=== PATIENT | female | born 1990 | race Caucasian/White ===

== ENCOUNTER 2017-09-20 16:57 | Emergency (ER) | payer SELFPAY ==
[2017-09-20 17:43] VITALS: BP 115/68
--- NOTE | 2017-09-20 18:05 | UC ---
Complaint Female HPI - HPI Summary HPI Summary: Patient presents reporting to be tested for sexually transmitted diseases. Patient states has a new partner as of 3 weeks ago. Patient states approximately 2 weeks ago she noticed some white discharge and dysuria. The symptoms have abated. Patient's partner was recently diagnosed with chlamydia and recommended she come get checked. Patient is not using any barrier protection. Patient without a history of STDs. Patient denies any fevers or chills. No abdominal pain. Back pain. No nausea vomiting. No external lesions. G0 lmp 10 days Patient's medications reviewed this is visit. - History Of Current Complaint Chief Complaint: UCGU Stated Complaint: POSS UTI Time Seen by Provider: 09/20/17 17:49 Hx Obtained From: Patient Hx Last Menstrual Period: 08/07/17 ?: No Onset/Duration: Gradual Onset Pain Intensity: 0 - Allergies/Home Medications Allergies/Adverse Reactions: Allergies Allergy/AdvReac Type Severity Reaction Status Date / Time No Known Allergies Allergy Verified 09/20/17 17:43 PMH/Surg Hx/FS Hx/Imm Hx Previously Healthy: Yes - Surgical History Surgical History: None - Family History Known Family History: Positive: None - Social History Occupation: Employed Full-time Lives: With Family Alcohol Use: Occasionally Substance Use Type: None Smoking Status (MU): Never Smoked Tobacco Review of Systems Constitutional: Negative Genitourinary: Vaginal/Penile Discharge All Other Systems Reviewed And Are Negative: Yes Physical Exam - Summary Physical Exam Summary: Patient Name: AMALIA WELDON Medical Record#: [id number] Ordering Physician: Kath Richards MD Acct.#: [id number] : 01/09/1973 Age: 44 Sex: F Location: [facility] Exam Date: 09/20/171803 ADM Status: REG ER Order Information: HIP RIGHT 2 VIEWS AND PELVIS Accession Number: [id number] CPT: 61302 HISTORY: Right hip lateral pain, bursitis COMPARISONS: None Patient Name: AMALIA WELDON Medical Record#: [id number] Ordering Physician: Kath Richards MD Acct.#: [id number] : 01/09/1973 Age: 44 Sex: F Location: [facility] Exam Date: 09/20/171803 ADM Status: REG ER Order Information: HIP RIGHT 2 VIEWS AND PELVIS Accession Number: [id number] CPT: 02301 HISTORY: Right hip lateral pain, bursitis COMPARISONS: None Vital Signs Reviewed: Yes A+Ox3, no distress Eyes: Conjunctiva Clear, LITTLE. EOM intact and full ENT: Hearing grossly normal TM x 2 clear, mmoist, uvula midline, no exudate, no erythema Neck: Positive: Supple Respiratory: Positive: No respiratory distress, No accessory muscle use + CTA throughout no w/r Cardiovascular: RRR nl s1, s2 no m/r CBT <2 sec abd soft + BS nt/nd no guarding, no distension vaginal: no external lesion, thin scant discharge in vault, no bleeding, no odor no CMT , no masses Musculoskeletal Exam: MOMIN x 4 without difficulty Strength Intact, ROM Intact Neurological: Positive: Alert, + sensation throughout Psychological: Positive: Normal Response To Family Skin: Positive: no rash, no ecchymosis Triage Information Reviewed: Yes Vital Signs: Initial Vital Signs Temp 97.7 F 09/20/17 17:39 Pulse 74 09/20/17 17:39 Resp 16 09/20/17 17:39 BP 115/68 09/20/17 17:39 Pulse Ox 100 09/20/17 17:39 Complaint Female Dx - Course Course Of Treatment: Pt's partner with STD. pt with vaginal discharge and burning x 1 weeks - sx resolved. pt requesting STD check. after discussing with pt will check hep, hiv, rpr, gc/ch. will treat gc/ch. cutures pending - pt aware - Differential Dx/Diagnosis Provider Diagnoses: STD exposure. vaginal discharge Discharge - Sign-Out/Discharge Documenting (check all that apply): Discharge/Admit/Transfer - Discharge Plan Condition: Stable Disposition: HOME Prescriptions: Fluconazole [Diflucan 150 MG (NF)] 150 mg PO ONCE #1 tab Patient Education Materials: Sexually Transmitted Diseases (ED), Safe Sex (ED) Referrals: No Primary Care Phys,NOPCP [Primary Care Provider] - Additional Instructions: you were treated for gonorrhea and chlaymdia today. You have bloodwork and cervical cultures taken - this will test for other sexually transmitted diseases including HIV, hepatitis, trichamonis and syphillis. These results take 3-5 days to come back. A care steaming machine operator will contact you if there are any concerning results. As discussed you should have your HIV rechecked in 6 months [facility], or return with any questions or concerns - Billing Disposition and Condition Condition: STABLE Disposition: HOME
[2017-09-20] MEDS ORDERED: cefTRIAXone VIAL(*) 250 MG VIAL IM ONE (18:28)
[2017-09-20] MEDS ORDERED: Azithromycin TAB* 250 MG PO ONE (18:28)
[2017-09-20] MEDS ORDERED: Lidocaine 1% MPF* 2 ML VIAL ONE (18:36)
[2017-09-20] MEDS ORDERED: Lidocaine 1% MPF* 2 ML VIAL INJ ONE (18:40)
--- NOTE | 2017-09-21 18:47 | ED ---
Progress - Progress Note Progress Note: NURSING TO CALL PATIENT POSITIVE RADHA RX FOR DIFLUCAN SENT TO PHARMACY Discharge - Sign-Out/Discharge Documenting (check all that apply): Discharge/Admit/Transfer - Discharge Plan Condition: Stable Disposition: HOME Prescriptions: Fluconazole [Diflucan 150 MG (NF)] 150 mg PO ONCE #1 tab Patient Education Materials: Sexually Transmitted Diseases (ED), Safe Sex (ED) Referrals: No Primary Care Phys,NOPCP [Primary Care Provider] - Additional Instructions: you were treated for gonorrhea and chlaymdia today. You have bloodwork and cervical cultures taken - this will test for other sexually transmitted diseases including HIV, hepatitis, trichamonis and syphillis. These results take 3-5 days to come back. A care marine steam fitter will contact you if there are any concerning results. As discussed you should have your HIV rechecked in 6 months [facility], or return with any questions or concerns - Billing Disposition and Condition Condition: STABLE Disposition: HOME
--- NOTE | 2017-09-22 15:06 | UC ---
- Progress Note Progress Note: GC/Chlamydia returned today. GC POSITIVE - she was treated for this at her visit. No change. Please let her know. Also - lab called today saying that they did not receive a sample for the urine culture. ---Given that this was her main complaint - should return to provide a urine sample for culture. Discharge - Sign-Out/Discharge Documenting (check all that apply): Post-Discharge Follow Up - Discharge Plan Condition: Stable Disposition: HOME Prescriptions: Fluconazole [Diflucan 150 MG (NF)] 150 mg PO ONCE #1 tab Patient Education Materials: Sexually Transmitted Diseases (ED), Safe Sex (ED) Referrals: No Primary Care Phys,NOPCP [Primary Care Provider] - Additional Instructions: you were treated for gonorrhea and chlaymdia today. You have bloodwork and cervical cultures taken - this will test for other sexually transmitted diseases including HIV, hepatitis, trichamonis and syphillis. These results take 3-5 days to come back. A care count team member will contact you if there are any concerning results. As discussed you should have your HIV rechecked in 6 months [facility], or return with any questions or concerns - Billing Disposition and Condition Condition: STABLE Disposition: HOME
== END 2017-09-20 19:05 | disposition home or self-care (01) ==
LOC: UCEAST 16:57
DX: N89.8 Other specified noninflammatory disorders of vagina (principal); Z20.2 Contact with and (suspected) exposure to infections with a predominantly sexual mode of transmission; Z11.4 Encounter for screening for human immunodeficiency virus [HIV]
CPT/HCPCS: 36415; 81003; 86592; 86703; 86706; 86803; 87340; 87480; 87491; 87510; 87591; 87661; 96372; 99212; A9270-GY; G0463; J0696